=== PATIENT | male | born 1985 ===

== ENCOUNTER 2021-09-04 16:23 | Emergency (ER) | payer SELFPAY ==
[~2021-09-04] VITALS: Ht 182.9 cm; Wt 77.0 kg
[2021-09-04] MEDS ORDERED: IBUPROFEN 600MG TABLET PO ONE (17:30)
[2021-09-04] MEDS ORDERED: ACETAMINOPHEN 325MG TABLET PO ONE (17:30)
[2021-09-04 17:51] VITALS: BP 172/98
== END 2021-09-04 17:52 | disposition home or self-care (01) ==
LOC: ER 16:23
DX: M54.50 Low back pain, unspecified (principal)
CPT/HCPCS: 99281